=== PATIENT | male | born 1980 | race Two or more races ===

== ENCOUNTER 2019-09-10 12:21 | Emergency (ER) | payer OTHER ==
[~2019-09-10] VITALS: Ht 175.3 cm; Wt 74.8 kg
== END 2019-09-10 13:21 | disposition home or self-care (01) ==
LOC: ER 12:21
DX: S01.122A Laceration with foreign body of left eyelid and periocular area, initial encounter (principal); W26.1XXA Contact with sword or dagger, initial encounter; Y93.89 Activity, other specified; Y92.89 Other specified places as the place of occurrence of the external cause; Y99.8 Other external cause status